=== PATIENT | male | born 1975 | race Caucasian/White ===

== ENCOUNTER 2019-10-06 03:57 | Emergency (ER) | payer MEDICAID ==
[~2019-10-06] VITALS: Ht 172.7 cm; Wt 105.2 kg
[2019-10-06 04:02] VITALS: Ht 172.7 cm; Wt 105.2 kg
[2019-10-06 07:15] LABS: CALCIUM 9.1 mg/dL (8.5-10.1); CARBON DIOXIDE 22.7 mmol/L (21-32); CHLORIDE SERUM 102 mmol/L (98-107); CREATININE SERUM 0.9 mg/dL (0.7-1.3); GFR1 > 60 mL/min; GLUCOSE SERUM 120 mg/dL (74-106); MAGNESIUM 1.7 mg/dL (1.8-2.4); POTASSIUM SERUM 3.9 mmol/L (3.5-5.1); SODIUM SERUM 139 mmol/L (136-145)
[2019-10-06 09:12] LABS: BASOPHIL % 0.6 % (0-2); PLATELET COUNT 210 x10^3mcL (130-400); RED CELL DISTRIBUTION WIDTH 12.6 % (11.5-14.5)
[2019-10-06 09:54] VITALS: BP 148/69
== END 2019-10-06 09:54 | disposition left against medical advice (07) ==
LOC: ED 03:57
PROVIDERS: Emergency Medicine
DX: C79.51 Secondary malignant neoplasm of bone (principal)
CPT/HCPCS: J1885; J2270; J2405